=== PATIENT | female | born 1945 | race Caucasian/White ===

== ENCOUNTER 2017-12-23 09:42 | Emergency (ER) | payer MEDICAID ==
[2017-12-23] MEDS: KETOROLAC 30 MG INJ IM (12:22)
[2017-12-23] MEDS: traMADol 50 MG TAB PO (12:22)
== END 2017-12-23 13:46 | disposition home or self-care (01) ==
LOC: FTE 09:42
DX: M54.41 Lumbago with sciatica, right side (principal)
CPT/HCPCS: 96372; 99284-25

== ENCOUNTER 2018-04-04 16:22 | Emergency (ER) | payer MEDICAID | END 2018-04-04 17:32 | disposition home or self-care (01) | LOC: FTE 16:22 | DX: J32.9 Chronic sinusitis, unspecified (principal) | CPT/HCPCS: 99284; Z7502 ==